=== PATIENT | female | born 1950 | race Caucasian/White ===

== ENCOUNTER 2022-05-10 22:50 | Emergency (ER) | payer MEDICARE, OTHER ==
[2022-05-10] MEDS ORDERED: Atenolol 50 MG TAB ONE ×2 (23:51→23:52)
[2022-05-10 23:53] LABS: ALT (SGPT) 24 U/L (8-55); AST (SGOT) 21 U/L (5-34); Albumin 3.1 g/dL (3.4-4.8); Alkaline Phosphatase 97 U/L (40-110); Anion Gap 14 mmol/L (10-20); BUN (Urea Nitrogen) 8 mg/dL (9.8-20.1); Bilirubin, Total 0.5 mg/dL (0.2-1.2); Calc. Creatinine Clearance 0 mL/min (70-130); Calcium 8.1 mg/dL (7.8-10.44); Carbon Dioxide 24 mmol/L (23-31); Chloride 107 mmol/L (98-107); Estimated GFR 95; Globulin 2.7 g/dL (2.4-3.5); Glucose 84 mg/dL (83-110); Potassium 3.7 mmol/L (3.5-5.1); Protein, Total 5.8 g/dL (5.8-8.1); Sodium 141 mmol/L (136-145)
[2022-05-11] MEDS ORDERED: cefTRIAXone\\ROCEPHIN 1 GM VIAL ONE (00:03)
[2022-05-11] MEDS ORDERED: Azithromycin 500 MG VIAL ONE (00:04)
[2022-05-11 00:11] LABS: #Eosinphils 0.1 thou/uL (0.0-0.7); #Lymphocytes 0.6 thou/uL (1.20-3.40); #Monocytes 0.5 thou/uL (0.11-0.59); #Neutrophils 4.1 thou/uL (1.40-6.50); %Basophils 0.9 % (0.0-1.0); %Eosinophils 1.3 % (0.0-10.0); %Lymphocytes 10.9 % (21.0-51.0); %Monocytes 9.6 % (0.0-10.0); %Neutrophils 77.2 % (42.0-75.0); Hemoglobin 11.8 g/dL (12.0-16.0); Mean Corpuscular HGB CONC 31.8 g/dL (32.0-36.0); Mean Corpuscular Hemoglobin 29.2 pg (27.0-31.0); Mean Corpuscular Volume 91.7 fl (78.0-98.0); Mean Platelet Volume 6.5 fL (7.4-10.4); Platelet Count 311 10x3/uL (130-400); RBC Distribution Width 15.8 % (11.5-14.5); Red Blood Cell (RBC) Count 4.06 mill/uL (4.20-5.40); White Blood Cell (WBC) Count 5.2 10x3/uL (4.8-10.8)
[2022-05-11 00:15] LABS: CKMB 1.5 ng/mL (0-6.6)
[2022-05-11] MEDS ORDERED: Aspirin Chewable 81 MG TAB ONE (00:20)
[2022-05-11] MEDS ORDERED: Furosemide 40 MG/4 ML VIAL ONE (00:25)
== END 2022-05-11 02:45 | disposition short-term general hospital (02) ==
LOC: BURERS 22:50
DX: J18.9 Pneumonia, unspecified organism (principal); I11.0 Hypertensive heart disease with heart failure; I50.9 Heart failure, unspecified; R77.8 Other specified abnormalities of plasma proteins; E03.9 Hypothyroidism, unspecified; E78.5 Hyperlipidemia, unspecified; Z79.899 Other long term (current) drug therapy
CPT/HCPCS: 71045; 80053; 82553; 83605; 83880; 84484; 85025; 87040; 93005; 96365; 96368; 99285; J0456; 36415; J0696; J1940

== ENCOUNTER 2022-08-01 11:11 | Outpatient (CLI) | payer MEDICARE, OTHER | END 2022-08-01 11:12 | disposition home or self-care (01) | LOC: BURRAD 11:11 | PROVIDERS: ATTEND Family Medicine | DX: M54.2 Cervicalgia (principal); M47.812 Spondylosis without myelopathy or radiculopathy, cervical region; M41.9 Scoliosis, unspecified | CPT/HCPCS: 72040 ==